=== PATIENT | female | born 1980 | race Native Hawaiian/Other Pacific Islander ===

== ENCOUNTER 2018-03-02 23:45 | Emergency (ER) | payer BC ==
[~2018-03-02] VITALS: Ht 160 cm; Wt 77.1 kg
[~2018-03-02 23:45] MED LIST: CEPH500C20 PO; FLUC150T PO; MULTIVITAMI1 PO; OMEP40CA PO; PAXIL20 MG PO; PERCOCET1 TA1 PO; PROM25TA52 PO; TRAZ100T PO
[2018-03-03 00:03] VITALS: BP 147/87
[2018-03-03] MEDS ORDERED: RISP1TAB PO (00:32)
[2018-03-03] MEDS ORDERED: PHENYTOIN EX100 MG PO (00:34)
[2018-03-03] MEDS ORDERED: MACROBID100 MG PO (00:34)
[2018-03-03] MEDS ORDERED: TRAZODONE HYDR150 MG PO (00:35)
[2018-03-03] MEDS ORDERED: PANTOPRAZOLE 40MG TA PO (00:35)
== END 2018-03-03 01:22 | disposition home or self-care (01) ==
LOC: ED 23:45
DX: N39.0 Urinary tract infection, site not specified (principal); M54.5 Low back pain
CPT/HCPCS: 81000; 96372; 99282; J1885